=== PATIENT | female | born 1945 | race Caucasian/White ===

== ENCOUNTER 2023-04-06 14:29 | Outpatient (CLI) | payer MEDICARE, SELFPAY ==
[2023-04-10 06:41] LABS: CA-125 7 U/mL (<35)
== END 2023-04-06 14:30 | disposition home or self-care (01) ==
PROVIDERS: Visit Provider Registered Nurse
DX: N94.89 Other specified conditions associated with female genital organs and menstrual cycle (principal); Z85.3 Personal history of malignant neoplasm of breast; R19.09 Other intra-abdominal and pelvic swelling, mass and lump
CPT/HCPCS: 36415; 86304